=== PATIENT | male | born 1960 | race American Indian/Alaskan Native ===

== ENCOUNTER 2017-02-09 18:56 | Inpatient (IN) | payer MEDICARE, OTHER ==
[2017-02-09 20:14] LABS: Basophils % (Auto) 0.1 % (0.0-1.8); Eosinophils % (Auto) 0.9 % (0.0-4.3); Hematocrit 41.4 % (35.5-45.6); Hemoglobin 13.7 gm/dl (11.8-15.2); Mean Corpuscular HGB Conc 33 % (32-34); Mean Corpuscular Hemoglobin 30 pg (28-32); Mean Corpuscular Volume 90 fl (84-94); Platelet Count 235 K/mm3 (140-440); Red Cell Distribution Width 13.5 % (13.2-15.2); White Blood Count 5.5 K/mm3 (4.5-11.0)
[2017-02-09 20:38] LABS: Anion Gap 17 mmol/L; BUN/Creatinine Ratio 11; Blood Urea Nitrogen 10 mg/dL (9-20); Calcium 8.9 mg/dL (8.4-10.2); Carbon Dioxide 26 mmol/L (22-30); Chloride 103.2 mmol/L (98-107); Glucose 98 mg/dL (75-100); Potassium 4.1 mmol/L (3.6-5.0); Sodium 142 mmol/L (137-145)
--- NOTE | 2017-02-09 21:28 | XRay Report ---
FINAL REPORT EXAM: XR CHEST 1V AP HISTORY: Chest Pain TECHNIQUE: AP portable chest radiograph. PRIORS: None FINDINGS: The lung volumes are low with bibasilar atelectasis. No focal consolidation, pleural effusion or pneumothorax is identified. Left upper lobe calcified granuloma is seen. The mediastinum and ranjan are normal. The aorta is tortuous. The cardiac silhouette is normal. The osseous structures are unremarkable. IMPRESSION: Low lung volumes with bibasilar atelectasis. No evidence of acute cardiopulmonary disease. Left upper lobe calcified granuloma.
[2017-02-09] MEDS ORDERED: ZOFRAN IV PRN (23:05)
[2017-02-09] MEDS ORDERED: MILK OF MAGNESIA PO PRN (23:05)
[2017-02-09] MEDS ORDERED: PROVENTIL IH PRN (23:05)
[2017-02-09] MEDS ORDERED: TYLENOL PO PRN (23:05)
[2017-02-09] MEDS ORDERED: DULCOLAX PR PRN (23:05)
[2017-02-09] MEDS ORDERED: MORPHINE IV PRN (23:05)
--- NOTE | 2017-02-09 23:11 | History and Physical Report ---
History of Present Illness Date of examination: 02/09/17 History of present illness: 57-year-old man with a history of peripheral vascular disease, AAA repair comes emergency room with complaints of chest pain that started today. Pain is in the left substernal area which he describes as a sharp pain, constant, intensity 8/10, no radiation and he can identify exacerbating or relieving factors. He admits to shortness of breath, no nausea vomiting, diaphoresis or palpitation. He never had a stress test Review Of Systems: Constitutional: no weight loss Ears, eyes, nose, mouth and throat: no nasal congestion, no nasal discharge, no sinus pressure, blurry vision, diplopia Neck: No neck pain or rigidity. Cardiovascular: No palpitations Respiratory: No cough Gastrointestinal: No abdominal pain, hematochezia Genitourinary : no dysuria, frequency , hematuria Musculoskeletal: no muscle ache Integumentary: no rash, no pruritis Neurological: no parathesias, focal weakness Endocrine: no cold or heat intolerance, no polyuria or polydipsia Hematologic/Lymphatic: no easy bruising, no easy bleeding, no gland swelling Allergic/Immunologic: no urticaria, no angioedema. PAST MEDICAL HISTORY:peripheral vascular disease, AAA repair PAST SURGICAL HISTORY:AAA repair FAMILY HISTORY: Hypertension SOCIAL HISTORY: Smokes half pack a day, admits to alcohol, no drugs Medications and Allergies Allergies Allergy/AdvReac Type Severity Reaction Status Date / Time No Known Allergies Allergy Unverified 02/26/13 10:27 Home Medications Medication Instructions Recorded Confirmed Last Taken Type Gabapentin [Neurontin] 400 mg PO Q8H 02/26/13 02/26/13 Unknown History Exam - Physical Exam Narrative exam: Gen. appearance: Patient lying in bed in no acute distress HEENT: Normocephalic/atraumatic, pupils equal round reactive to light, extra occular movement intact, no scleral icterus, no JVD or thyromegaly or nodule, neck is supple, mucous membrane moist, no erythema or exudate Heart: S1-S2, regular rate and rhythm Lungs: Clear to auscultation bilateral breathing comfortable Abdomen: Positive bowel sounds, nontender, nondistended, no organomegaly Extremities: No edema, cyanosis, clubbing Neuro:: Oriented 3 , cranial nerves II-12 intact, speech, motor intact Skin: No rash, nodules, warm dry - Constitutional Vitals: Temp Pulse Resp BP Pulse Ox 98.1 F 66 24 123/81 97 02/09/17 19:35 02/09/17 22:00 02/09/17 22:00 02/09/17 22:00 02/09/17 22:00 Results - Labs CBC & Chem 7: 02/09/17 19:36 02/09/17 19:36 - Imaging and Cardiology EKG: image reviewed Chest x-ray: image reviewed Assessment and Plan Assessment Chest pain, rule out ACS Peripheral vascular disease Plan Admit to medicine Check cardiac enzymes, stress test Start IV morphine, DVT prophylaxis Continue outpatient medication
[2017-02-09] MEDS: NEURONTIN PO SCH (23:27)
[2017-02-09 23:50] LABS: Creatine Kinase MB 1.2 ng/mL (0.0-4.0)
[2017-02-09 23:51] LABS: Creatine Kinase 145 units/L (55-170)
[2017-02-10 00:20] LABS: Urine Drugs of Abuse Note Disclamer
[2017-02-10 00:27] LABS: Bilirubin,Urine NEG (Negative); Blood,Urine NEG (Negative); Ketones,Urine NEG (Negative); Leukocyte Esterase,Urine NEG (Negative); Mucus,Urine 1+ /HPF; Nitrite,Urine NEG (Negative); Protein,Urine <15 mg/dL mg/dL (Negative); RBC,Urine < 1.0 /HPF (0.0-6.0)
[2017-02-10 05:46] LABS: Alanine Aminotransferase 10 units/L (7-56); Albumin 3.8 g/dL (3.9-5); Alkaline Phosphatase 73 units/L (35-129); Anion Gap 19 mmol/L; BUN/Creatinine Ratio 10; Blood Urea Nitrogen 8 mg/dL (9-20); Calcium 8.9 mg/dL (8.4-10.2); Carbon Dioxide 23 mmol/L (22-30); Chloride 102.2 mmol/L (98-107); Glucose 114 mg/dL (75-100); Potassium 3.7 mmol/L (3.6-5.0); Sodium 140 mmol/L (137-145); Total Protein 7.6 g/dL (6.3-8.2)
[2017-02-10 05:56] LABS: Creatine Kinase 126 units/L (55-170)
[2017-02-10 06:05] LABS: Creatine Kinase MB < 1.0 ng/mL (0.0-4.0)
[2017-02-10] MEDS: NEURONTIN PO SCH ×2 (06:21→13:46)
[2017-02-10] MEDS ORDERED: LEXISCAN IV ONE (08:32)
[2017-02-10] MEDS ORDERED: LOVENOX SUB-Q SCH (10:00)
--- NOTE | 2017-02-10 10:03 | Treadmill Report ---
INDICATION: Chest pain. ORDERING PHYSICIAN: Brinda Gurrola MD FINDINGS: There is no scintigraphic evidence of myocardial ischemia. The left ventricle is normal in size and systolic function. The left ventricular ejection fraction is measured at 64%. Normal wall motion and wall thickening is noted on gated imaging. CONCLUSION: Normal perfusion scan. JOB# [id number] JASON/NTS
[2017-02-10 12:42] VITALS: BP 112/70
[2017-02-10] MEDS ORDERED: BABY ASPIRIN PO SCH (13:00)
[2017-02-10] MEDS ORDERED: NORVASC PO SCH (13:00)
--- NOTE | 2017-02-10 13:50 | Discharge Summary ---
Providers - Providers Date of Admission: 02/10/17 00:26 Date of discharge: 02/10/17 Attending physician: DIONTE BELL Hospitalization Condition: Stable Disposition: DC-01 TO HOME OR SELFCARE Exam - Constitutional Vitals: Temp Pulse Resp BP Pulse Ox 98.2 F 102 H 18 112/70 97 02/10/17 04:23 02/10/17 08:43 02/10/17 04:23 02/10/17 08:43 02/10/17 10:57 Plan Activity: advance as tolerated Diet: low fat, low cholesterol, low salt Additional Instructions: 1.Follow up with PCP in 1 week Follow up with: [facility] [Other] - 7 Days Prescriptions: Famotidine [Pepcid] 20 mg PO BID #30 tablet
--- NOTE | 2017-02-10 14:20 | Cat Scan Report ---
FINAL REPORT EXAM: CT ANGIO CHEST HISTORY: chest pain, elevated d-dimer TECHNIQUE: CT examination of the chest with IV contrast CT angiographic 2D and thick slab 3D image post-processing PRIORS: None. FINDINGS: Normal cardiac size without pericardial effusion. Intact normal caliber thoracic aorta with calcified and noncalcified atherosclerotic plaque. Normal-appearing esophagus. No evidence of hilar mass or mediastinal adenopathy. The visualized pulmonary arteries are diffusely patent bilaterally. There is no filling defect to suggest PE. An aneurysm is present in the visible portion of the abdominal aorta. Maximum dimension on the lowest most axial section is 4.5 cm. The aneurysm may be larger but the distal aspect is not imaged. Transverse and descending colon diverticulosis. No acute fracture. No pneumothorax or pleural effusion. Widespread pulmonary emphysema diffusely. Subpleural pneumatoceles in both lung apices. Large subpleural pneumatocele in the anteromedial left upper lobe. Prominent interstitial markings in both lungs diffusely likely secondary to scarring. Small calcified granuloma right lower lobe. Nonspecific slight consolidation in the posterior left lower lobe CP angle region may be scar, atelectasis, or small infiltrate. IMPRESSION: Incompletely imaged abdominal aortic aneurysm with maximum diameter visible portion measuring 4.5 cm. Consider followup abdominal aortic ultrasound and/or CT to evaluate full diameter Slight consolidation in the left lower lobe posterior CP angle region may be scarring or atelectasis. The differential includes small infiltrate Widespread pulmonary emphysema with pneumatoceles and interstitial pulmonary scarring Slight colon diverticulosis in visible portion No CT evidence of PE
--- NOTE | 2017-02-10 14:55 | Progress Note ---
Hospitalist Physical - Constitutional Vitals: Temp Pulse Resp BP Pulse Ox 98.2 F 83 18 112/70 97 02/10/17 04:23 02/10/17 14:35 02/10/17 04:23 02/10/17 08:43 02/10/17 10:57 Results - Labs CBC & Chem 7: 02/09/17 19:36 02/10/17 04:22 Labs: Laboratory Last Values WBC 5.5 K/mm3 (4.5-11.0) 02/09/17 19:36 RBC 4.60 M/mm3 (3.65-5.03) 02/09/17 19:36 Hgb 13.7 gm/dl (11.8-15.2) 02/09/17 19:36 Hct 41.4 % (35.5-45.6) 02/09/17 19:36 MCV 90 fl (84-94) 02/09/17 19:36 MCH 30 pg (28-32) 02/09/17 19:36 MCHC 33 % (32-34) 02/09/17 19:36 RDW 13.5 % (13.2-15.2) 02/09/17 19:36 Plt Count 235 K/mm3 (140-440) 02/09/17 19:36 Lymph % (Auto) 26.6 % (13.4-35.0) 02/09/17 19:36 [place] % (Auto) 5.3 % (0.0-7.3) 02/09/17 19:36 Eos % (Auto) 0.9 % (0.0-4.3) 02/09/17 19:36 Baso % (Auto) 0.1 % (0.0-1.8) 02/09/17 19:36 Lymph # 1.5 K/mm3 (1.2-5.4) 02/09/17 19:36 [place] # 0.3 K/mm3 (0.0-0.8) 02/09/17 19:36 Eos # 0.1 K/mm3 (0.0-0.4) 02/09/17 19:36 Baso # 0.0 K/mm3 (0.0-0.1) 02/09/17 19:36 Seg Neutrophils % 67.1 % (40.0-70.0) 02/09/17 19:36 Seg Neutrophils # 3.7 K/mm3 (1.8-7.7) 02/09/17 19:36 D-Dimer 1246.30 ng/mlDDU (0-234) H 02/10/17 10:56 Sodium 140 mmol/L (137-145) 02/10/17 04:22 Potassium 3.7 mmol/L (3.6-5.0) 02/10/17 04:22 Chloride 102.2 mmol/L (98-107) 02/10/17 04:22 Carbon Dioxide 23 mmol/L (22-30) 02/10/17 04:22 Anion Gap 19 mmol/L 02/10/17 04:22 BUN 8 mg/dL (9-20) L 02/10/17 04:22 Creatinine 0.8 mg/dL (0.8-1.5) 02/10/17 04:22 Estimated GFR > 60 ml/min 02/10/17 04:22 BUN/Creatinine Ratio 10 % 02/10/17 04:22 Glucose 114 mg/dL (75-100) H 02/10/17 04:22 Calcium 8.9 mg/dL (8.4-10.2) 02/10/17 04:22 Total Bilirubin 0.30 mg/dL (0.1-1.2) 02/10/17 04:22 AST 10 units/L (5-40) 02/10/17 04:22 ALT 10 units/L (7-56) 02/10/17 04:22 Alkaline Phosphatase 73 units/L (35-129) 02/10/17 04:22 Total Creatine Kinase 126 units/L (55-170) 02/10/17 04:22 CK-MB (CK-2) < 1.0 ng/mL (0.0-4.0) 02/10/17 04:22 CK-MB (CK-2) Rel Index 0.7 (0-4) 02/10/17 04:22 Troponin T < 0.010 ng/mL (0.00-0.029) 02/10/17 04:22 Total Protein 7.6 g/dL (6.3-8.2) 02/10/17 04:22 Albumin 3.8 g/dL (3.9-5) L 02/10/17 04:22 Albumin/Globulin Ratio 1.0 % 02/10/17 04:22 Urine Color Yellow (Yellow) 02/10/17 00:16 Urine Turbidity Clear (Clear) 02/10/17 00:16 Urine pH 6.0 (5.0-7.0) 02/10/17 00:16 Ur Specific [place] 1.019 (1.003-1.030) 02/10/17 00:16 Urine Protein <15 mg/dl mg/dL (Negative) 02/10/17 00:16 Urine Glucose (UA) Neg mg/dL (Negative) 02/10/17 00:16 Urine Ketones Neg mg/dL (Negative) 02/10/17 00:16 Urine Blood Neg (Negative) 02/10/17 00:16 Urine Nitrite Neg (Negative) 02/10/17 00:16 Urine Bilirubin Neg (Negative) 02/10/17 00:16 Urine Urobilinogen 2.0 mg/dL (<2.0) 02/10/17 00:16 Ur Leukocyte Esterase Neg (Negative) 02/10/17 00:16 Urine WBC (Auto) 3.0 /HPF (0.0-6.0) 02/10/17 00:16 Urine RBC (Auto) < 1.0 /HPF (0.0-6.0) 02/10/17 00:16 Urine Mucus 1+ /HPF 02/10/17 00:16 Urine Opiates Screen Presumptive negative 02/10/17 00:16 Urine Methadone Screen Presumptive negative 02/10/17 00:16 Ur Barbiturates Screen Presumptive negative 02/10/17 00:16 Ur Phencyclidine Scrn Presumptive negative 02/10/17 00:16 Ur Amphetamines Screen Presumptive negative 02/10/17 00:16 U Benzodiazepines Scrn Presumptive negative 02/10/17 00:16 Urine Cocaine Screen Presumptive positive 02/10/17 00:16 U Marijuana (THC) Screen Presumptive positive 02/10/17 00:16 Drugs of Abuse Note Disclamer 02/10/17 00:16
--- NOTE | 2017-02-12 14:28 | Event Note ---
Date: 02/12/17 Patient left on 02/10/17 prior to being evaluated. Late entry event note.
--- NOTE | 2017-02-27 15:15 | Query- Chest Pain ---
Lenore Vlilar____Carmen Date:____02/27/17 Wireless Sales Representative/CDS: Yuri / Mateo Phone#:___[phone] Exercise your independent professional judgment when responding to query. Questions asked do not imply a particular answer is desired or expected. We greatly appreciate your clarification on this issue. Clinical Documentation States: 57 year old male was admitted on 02/09/17 The H&P (Dr. Gurrola) states " 57-year-old man with a history of peripheral vascular disease, AAA repair comes emergency room with complaints of chest pain that started today. Assessment Chest pain, rule out ACS " Please document the etiology of Chest Pain: [ ] Myocardial Infarction [ ] Pneumonia [ ] Mediastinitis [ ] Costochondritis [ ] Pulmonary Embolism [ ] Coronary Artery Disease [x ] GERD [ ] Other: [ ] Comment/Explanation: Present on Admission: [x ] Yes (Y) [ ] Clinically undeterminable (W) [ ] No(N) Please document response in your Progress Notes and/or Discharge Summary and indicate if the condition was present on admission. MARVIN
== END 2017-02-10 16:45 | disposition home or self-care (01) | DRG 392 ==
LOC: ED 18:56 → 4A 02-10 00:26
PROVIDERS: ADMIT Internal Medicine; ATTEND Internal Medicine
DX: K21.9 Gastro-esophageal reflux disease without esophagitis (principal); I73.9 Peripheral vascular disease, unspecified; Z82.49 Family history of ischemic heart disease and other diseases of the circulatory system; Z79.899 Other long term (current) drug therapy; F17.200 Nicotine dependence, unspecified, uncomplicated
CPT/HCPCS: 36415; 71010; 71275; 78452; 80048; 80053; 80307; 81001; 82550; 82553; 84484; 85025; 85379; 93005; 93010; 93017; 96372; 96374; 99285; A9502; J1650; J2785; Q9967